=== PATIENT | male | born 1960 | race Caucasian/White ===

== ENCOUNTER → 2023-09-19 | Outpatient (CLI) | payer BC ==
[~2023-09-19] MED LIST: ALBU90OI INH; ASCO500 PO; AZIT250 PO; CETI10 PO; CHOL10002 PO; Depo-Testos200 MG/ML; FISH1000 PO; HYDACE5 PO; LISI5 PO; NIAC500 PO; OMEP20ER PO; PRED20 PO; TESTOSTERONE
[2023-10-09 21:08] LABS: CALCULI MASS 13 mg
== END ==
LOC: LAB 11:40 → LAB SHORT 11:40
PROVIDERS: Physician Assistant
DX: N20.0 Calculus of kidney (principal)
CPT/HCPCS: 82365

== ENCOUNTER 2025-07-09 07:45 | Day surgery (SDC) | payer OTHER ==
[~2025-07-09] VITALS: Ht 188 cm; Wt 240.2 kg
[2025-07-09] MEDS ORDERED: AMLO10 PO (09:04)
[2025-07-09 10:01] VITALS: BP 103/79
== END 2025-07-09 10:21 | disposition home or self-care (01) ==
LOC: ORSCSDS 07:45
PROVIDERS: Surgery
PROC: 0DBN8ZX Excision of Sigmoid Colon, Via Natural or Artificial Opening Endoscopic, Diagnostic (ICD-10-PCS; principal; 2025-07-09 09:15)
PROC: 0DBP8ZX Excision of Rectum, Via Natural or Artificial Opening Endoscopic, Diagnostic (ICD-10-PCS; principal; 2025-07-09 09:15)
DX: Z12.11 Encounter for screening for malignant neoplasm of colon (principal); K51.40 Inflammatory polyps of colon without complications; K62.1 Rectal polyp; K64.1 Second degree hemorrhoids; Z86.0100 Personal history of colon polyps, unspecified; Z83.719 Family history of colon polyps, unspecified; I10 Essential (primary) hypertension; E78.5 Hyperlipidemia, unspecified; K21.9 Gastro-esophageal reflux disease without esophagitis; E66.811 Obesity, class 1; Z68.31 Body mass index [BMI] 31.0-31.9, adult; Z79.899 Other long term (current) drug therapy; Z87.891 Personal history of nicotine dependence
CPT/HCPCS: 88305; J2704; J7120